=== PATIENT | male | born 1965 | race Caucasian/White ===

== ENCOUNTER 2025-07-05 20:47 | Emergency (ER) | payer OTHER, SELFPAY ==
[2025-07-05 20:50] VITALS: BP 148/91
[2025-07-05 21:16] LABS: Hematocrit 42.3 % (39.0-52.0); Hemoglobin 14.0 g/dL (13.0-18.0); Mean Corp Hgb Conc. 33.1 g/dL (33.0-37.0); Mean Corpuscular Volume 84.9 fL (80.0-94.0); Nucleated Red Blood Cells % 0 % (-); Platelet Count 248 10^3/uL (130-400); Red Cell Dist. Width 12.2 % (11.5-14.5)
[2025-07-05 21:31] LABS: ALT (SGPT) 24 U/L (0-50); AST (SGOT) 33 U/L (17-59); Albumin 4.4 g/dl (3.5-5.0); Alkaline Phosphatase 33 U/L (38-126); Blood Urea Nitrogen 19 mg/dl (9-20); Calcium 9.4 mg/dl (8.4-10.2); Carbon Dioxide 29 mmol/L (22-30); Chloride 101 mmol/L (98-107); Glucose 88 mg/dl (70-99); Potassium 4.6 mmol/L (3.5-5.1); Sodium 135 mmol/L (135-145); Total Protein 7.4 g/dl (6.3-8.2); eGFR > 60.00
[2025-07-05 21:42] LABS: Troponin I < 0.012 ng/ml
[2025-07-05 21:47] VITALS: BP 135/74
[2025-07-05 21:51] VITALS: BMI 30.2
[2025-07-05 22:00] VITALS: BP 121/80
--- NOTE | 2025-07-05 22:15 | ED.GENMED ---
History of Present Illness
General
Chief Complaint: Chest Pain
Source: patient and spouse
Exam Limitations: none
Time Seen by Provider: 07/05/25 22:06
Nursing documentation reviewed up to this point in time: agreed with
History of Present Illness
History of Present Illness:
60-year-old male with past medical history of asthma, hyperlipidemia who presents to the emergency department with his for evaluation of chest pain. Patient reports onset of symptoms earlier this afternoon around 3 PM shortly after finishing
lunch. Symptoms have been constant since onset. He reports vague left-sided discomfort radiating towards the jaw. Denies any associated shortness of breath. Denies any nausea, vomiting, diaphoresis. No abdominal pain. He has had mild cough
recently but otherwise has been in his normal state of health. Denies similar symptoms in the past. He denies any personal history of heart disease, father had CHF in his elderly years but no family history of early heart disease.
Review of Systems
Review of Systems
All Other Systems: ROS reviewed and negative except as documented in HPI and ROS
Constitutional: Denies fever
Respiratory: Reports cough; Denies trouble breathing
Cardiac: Reports chest pain; Denies palpitations
ABD/GI: Denies abdominal pain, nausea or vomiting
: Denies flank pain
Musculoskeletal: Denies edema, neck pain or back pain
Neurological: Denies dizzy or headache
Phy Exam
Physical Exam
Physical Exam:
General: Awake, alert, oriented x3; no acute distress
Head: Normocephalic, atraumatic
Eyes: Conjunctiva normal, sclera anicteric
Throat: Airway intact, handling secretions
Neck: Trachea midline, supple without meningismus
Lungs: Clear to auscultation bilaterally, no wheezing, rales, rhonchi
Heart: Regular rate and rhythm, no murmurs, gallops, or rubs
Abd: Soft, non distended, nontender
Neuro: Grossly intact
Skin: Warm and dry
Extremities: No edema in extremities, equal pulses in all extremities
Scores
Heart Failure Risk
Heart Failure Risk Score: Not Applicable
Heart Score for Chest Pain Patients
STEMI patient?: No
History: Slightly or Non-Suspicious
ECG: Normal
Age: >45 - <65 years
Risk Factors: 1 or 2 Risk Factors
Troponin: </= Normal Limit
Heart Score for Chest Pain Patients: 2
Heart Score Risk: 2.5% MACE over next 6 weeks
Withdrawal Assessment of Alcohol
Withdrawal Assessment Completed?: Not applicable
Course
Orders/Labs/Results
Orders:
Orders
07/05/25 20:49
EKG [Electrocardiogram (*1)] Urgent
Reason for Study: Chest Pain
EKG- Treatment ONCE
07/05/25 21:13
Complete Blood Count/With Diff Urgent
Comprehensive Metabolic Panel Urgent
Troponin I Urgent
07/06/25 00:05
CR Chest - 2 Views Urgent
Reason For Exam: cp
07/06/25 00:17
Troponin I Urgent
Abnormal Lab Results
07/05/25
21:13
WBC 11.4 H 10^3/uL
(4.8-10.8)
MPV 10.6 H fL
(7.4-10.4)
Abs Immat Gran (auto) 0.1 H 10^3/uL
(0-0.05)
Absolute Neuts (auto) 7.4 H 10^3/uL
(1.4-6.5)
Absolute Monos (auto) 1.3 H 10^3/uL
(0.1-0.6)
Lymphocytes % 19.8 L %
(20.5-51.1)
Monocytes % 11.2 H %
(1.7-9.3)
Alkaline Phosphatase 33 L U/L
(38-126)
12/12/25 21:13
07/05/25 21:13
Vital Signs
Initial and Last Documented VS:
Initial Vital Signs
Temp Pulse Resp BP Pulse Ox
37.1 C 70 20 148/91 97
07/05/25 20:50 07/05/25 20:50 07/05/25 20:50 07/05/25 20:50 07/05/25 20:50
Last Documented Vital Signs
Temp Pulse Resp BP Pulse Ox
37.1 C 68 17 124/72 96
07/05/25 20:50 07/06/25 00:00 07/06/25 00:00 07/06/25 00:00 07/06/25 00:00
MDM/Problems Addressed
Differential Diagnosis Includes:
ACS, GERD, costochondritis, pneumonia
MDM/Problems Addressed:
60-year-old male presents for evaluation of vague left-sided chest discomfort rating towards the left neck/jaw started this afternoon has been constant since onset. Vitals and exam as above. EKG shows sinus rhythm no STEMI. Labs are sent in
triage including CBC which shows a marginal leukocytosis, no other clinically significant abnormalities. His initial troponin is undetectable. Check repeat troponin. Check chest x-ray to rule out pneumonia given his recent cough with a low
suspicion for clear lungs and lack of fever. Will monitor clinically reassess at the above.
Repeat troponin undetectable�sufficient to rule out acute NE with consistent symptoms low suspicion for ACS. Patient declined chest x-ray�lungs sound clear, no tachypnea or hypoxia, low suspicion for pneumothorax or pneumonia we will hold off per
his request. Overall suspect that this is likely costochondritis from recent cough versus GERD as symptoms did start after lunch. Stable for discharge can follow-up with his primary care physician. Patient comfortable this plan. All questions
answered.
Chronic conditions affecting care:
Hyperlipidemia�higher risk for heart disease
*Radiology
Radiology exam reviewed: preliminary read by ED provider
*Pulse Oximetry
SaO2: 98
Oxygen Mode of Delivery: Room air
Patient hypoxic: no (98%)
*EKG
Interpreted by ED Provider?: Yes
Heart Rate: 68
Rate: normal
Rhythm: sinus
[place]: normal axis
Interval: normal interval
QRS Pattern: normal QRS
Ischemia: no ischemia
*Critical Care Note
Total Time (30-74mins, 75-104mins- exclusive of procedures): Not Applicable
Data Reviewed
Source: patient and spouse
ED Attending Note
-
Portions of this chart may have been created with voice recognition software.� Occasional wrong word or��sound alike� substitutions may have occurred due to the inherent limitations of voice recognition software.
Discharge Plan
Departure
Patient Disposition: Home (Routine Discharge)
Date of Disposition: 07/06/25
Time of Disposition: 01:00
Patient with high blood pressure during this ER visit?: Yes
Discharge Problem:
Chest pain
Instructions: Chest Pain PCP Follow Up
Activity Restrictions/Additional Instructions:
Thank you for visiting the Emergency Department at [facility].
1. Please schedule a follow up appointment as directed. Call first thing tomorrow morning to make an appointment.
2. If indicated, please take your medications as instructed and indicated on discharge paperwork.
3. If any of your symptoms do not improve, or persist, or become more severe within 6-12 hours, please return to the emergency department for further care.
4. Please return to the emergency department if you develop a headache, neck pain/stiffness, fever greater than 100.4F, chest pain, shortness of breath, persistent nausea, vomiting, slurred speech, difficulty walking, numbness/tingling, weakness,
signs of infection or any other symptoms that are worrisome to you.
Please call [phone] if you have any questions.
Interventions
Interventions:
*Risk Screen - Suicide Last Done: 07/05/25 20:50
*General Assessment Last Done: 07/05/25 20:50
*Neglect/Abuse Screening Last Done: 07/05/25 20:50
*ED COVID-19 Vaccine History Last Done: 07/05/25 20:50
*ED Influenza Vaccine History Last Done: 07/05/25 20:50
[facility] Fall Risk Assessment Tool Last Done: 07/05/25 21:51
ED- Cardiac Assessment Last Done: 07/05/25 21:51
Discharge Date and Time
Print Language: GERMAN
[2025-07-05 23:00] VITALS: BP 113/62
[2025-07-06] VITALS: BP 124/72
[2025-07-06 00:55] LABS: Troponin I < 0.012 ng/ml
== END 2025-07-06 01:08 | disposition home or self-care (01) ==
LOC: EMR 20:47
PROVIDERS: Emergency Medicine; EMERGENCY PHYSICIAN Emergency Medicine; FAMILY PHYSICIAN Family Medicine
DX: R07.9 Chest pain, unspecified (principal); R03.0 Elevated blood-pressure reading, without diagnosis of hypertension; D72.829 Elevated white blood cell count, unspecified; E78.5 Hyperlipidemia, unspecified; J45.909 Unspecified asthma, uncomplicated; Z82.49 Family history of ischemic heart disease and other diseases of the circulatory system
CPT/HCPCS: 99284; 80053; 84484; 85025; 93005